=== PATIENT | male | born 2000 | race Two or more races ===

== ENCOUNTER 2023-06-29 08:42 | Emergency (ER) | payer OTHER ==
[~2023-06-29] VITALS: Ht 175.3 cm; Wt 90.7 kg
== END 2023-06-29 09:10 | disposition home or self-care (01) ==
LOC: ER
DX: R21 Rash and other nonspecific skin eruption (principal); Z51.89 Encounter for other specified aftercare; Z91.013 Allergy to seafood

== ENCOUNTER 2023-07-03 08:22 | Emergency (ER) | payer OTHER ==
[~2023-07-03] VITALS: Ht 175.3 cm; Wt 86.2 kg
== END 2023-07-03 12:06 | disposition home or self-care (01) ==
LOC: ER 08:22
DX: Z48.02 Encounter for removal of sutures (principal); Z91.013 Allergy to seafood

== ENCOUNTER → 2023-07-08 | Emergency (ER) | payer OTHER ==
[~2023-07-08] VITALS: Ht 175.3 cm; Wt 86.2 kg
== END | disposition home or self-care (01) ==
LOC: ER 11:45
DX: Z48.02 Encounter for removal of sutures (principal); Z91.013 Allergy to seafood